=== PATIENT | male | born 2000 | race African-American/Black ===

== ENCOUNTER 2022-04-26 23:49 | Emergency (ER) | payer MEDICAID, OTHER ==
[~2022-04-26] VITALS: Ht 170.2 cm; Wt 81.8 kg
[2022-04-27 03:26] VITALS: BP 126/72
== END 2022-04-27 04:08 | disposition home or self-care (01) ==
LOC: EMS 23:51
DX: R45.1 Restlessness and agitation (principal)
CPT/HCPCS: 99285; Z7502

== ENCOUNTER 2024-05-09 02:29 | Inpatient (IN) | payer MEDICAID, OTHER ==
[~2024-05-09] VITALS: Ht 172.7 cm; Wt 71.7 kg
[2024-05-09 03:26] LABS: BASOPHILS % (AUTO) 0.5 % (0.0-2.0); EOSINOPHILS % (AUTO) 3.3 % (1.0-6.0); HEMOGLOBIN 13.7 g/dL (13.5-17.5); LYMPHOCYTES # (AUTO) 2.7 K/uL (1.0-4.8); LYMPHOCYTES % (AUTO) 35.2 % (22.0-44.0); MEAN CORPUSCULAR HEMOGLOBIN 30.2 pg (26.0-34.0); MEAN CORPUSCULAR HGB CONC 33.5 G/dL (31.0-37.0); MEAN CORPUSCULAR VOLUME 90 fL (80-100); MONOCYTES # (AUTO) 0.7 K/uL (0.1-1.0); MONOCYTES % (AUTO) 8.8 % (2.0-9.0); NEUTROPHILS # (AUTO) 3.9 K/uL (1.8-7.7); NEUTROPHILS % (AUTO) 52.2 % (40.0-70.0); PLATELET COUNT (AUTO) 256 K/uL (150-450); RED BLOOD CELL COUNT(AUTO) 4.55 MIL/uL (4.50-5.90); RED CELL DISTRIBUTION WIDTH 12.8 % (11.5-14.5); WHITE BLOOD COUNT (AUTO) 7.5 K/uL (4.5-11.0)
[2024-05-09 03:36] LABS: ANION GAP 9 mmol/L (8-16); CARBON DIOXIDE 28 mmol/L (22-29); CHLORIDE 99 mmol/L (98-107); CREATININE 1.08 mg/dL (0.60-1.30); GLOMERULAR FILTR. RATE CALC > 60 mL/min (>60); GLUCOSE,RANDOM 99 mg/dL (70-110); POTASSIUM 3.5 mmol/L (3.5-5.1); SODIUM SERUM 136 mmol/L (136-145); UREA NITROGEN, BLOOD 15 mg/dL (7-18)
[2024-05-09 04:04] LABS: ALCOHOL, BLOOD (SERUM) < 3 mg/dL (0-10)
[2024-05-09 04:09] LABS: COVID AG,FIA SOURCE NASAL SWAB; SARS-COV2 (COVID) ANTIGEN,FIA Negative (Negative)
[2024-05-09] MEDS ORDERED: HALOPERIDOL 5 MG TABLET PO PRN (07:00)
[2024-05-09 18:55] VITALS: BP 132/88; PULSE 88; RESP 14; TEMP 98; O2SAT 99
[2024-05-09 23:10] VITALS: BP 119/62; PULSE 70; RESP 16; TEMP 97.6; O2SAT 99
[2024-05-10 08:56] VITALS: BP 122/79; PULSE 69; RESP 17; TEMP 98; O2SAT 96
[2024-05-10] MEDS ORDERED: LITHIUM CARBONATE 300 MG CAPSULE PO SCH (17:00)
[2024-05-10] MEDS: DIVALPROEX SODIUM 500 MG DR TABLET PO SCH (17:00)
[2024-05-10] MEDS ORDERED: OMEPRAZOLE 20 MG CAPSULE PO PRN (17:30)
[2024-05-10] MEDS ORDERED: DOCUSATE SODIUM 100 MG CAPSULE PO PRN (17:30)
[2024-05-10] MEDS ORDERED: BACITRACIN 28 GM OINTMENT TP PRN (17:30)
[2024-05-10] MEDS ORDERED: ALBUTEROL SULFATE HFA 90 MCG/PUFF 8 GM INHALER IH PRN (17:30)
[2024-05-10] MEDS ORDERED: BENZOCAINE/MENTHOL LOZENGE PO PRN (17:30)
[2024-05-10] MEDS ORDERED: MAGNESIUM HYDROXIDE SUSPENSION 30 ML UDCUP PO PRN (17:30)
[2024-05-10] MEDS ORDERED: PETROLATUM,WHITE 28 GM JELLY TP PRN (17:30)
[2024-05-10] MEDS ORDERED: MAG HYDROX/ALUMINUM HYD/SIMETH ES 30 ML SUSPENSION UDCUP PO PRN (17:30)
[2024-05-10 20:15] VITALS: BP 125/80; PULSE 72; RESP 18; TEMP 97.9
[2024-05-10] MEDS: GuanFACINE HCL 1 MG TABLET PO SCH (20:58)
[2024-05-11 08:59] VITALS: BP 119/64; PULSE 60; RESP 16; TEMP 97.4; O2SAT 97
[2024-05-11] MEDS: PALIPERIDONE PALMITATE 234 MG/1.5 ML SYRINGE IM SCH (10:38)
[2024-05-11 20:00] VITALS: BP 138/72; PULSE 84; RESP 16; TEMP 98; O2SAT 95
[2024-05-12 09:29] VITALS: BP 109/67; PULSE 80; RESP 18; TEMP 98.9; O2SAT 96
[2024-05-12 14:36] VITALS: RESP 18; O2SAT 96
[2024-05-12] MEDS: IBUPROFEN 600 MG TABLET PO PRN (14:36)
[2024-05-12 15:36] VITALS: RESP 17; O2SAT 96
[2024-05-12] MEDS: ZOLPIDEM TARTRATE 10 MG TABLET PO PRN (21:21)
[2024-05-12 22:30] VITALS: BP 99/61; PULSE 58; RESP 18; TEMP 98; O2SAT 98
[2024-05-13 08:43] VITALS: BP 117/78; PULSE 69; RESP 16; TEMP 96.9; O2SAT 98
[2024-05-13 11:36] VITALS: RESP 16
[2024-05-13 12:36] VITALS: RESP 16
[2024-05-13 17:01] VITALS: RESP 18
[2024-05-13] MEDS: ACETAMINOPHEN 325 MG TABLET PO PRN (17:01)
[2024-05-13 18:01] VITALS: RESP 18
[2024-05-13 20:23] VITALS: BP 115/72; PULSE 64; RESP 18; TEMP 97.8; O2SAT 96
[2024-05-14 09:30] VITALS: BP 120/80; PULSE 65; RESP 18; TEMP 97.5; O2SAT 97
[2024-05-14 20:49] VITALS: BP 121/82; PULSE 56; RESP 20; TEMP 97.6; O2SAT 98
[2024-05-15 13:52] VITALS: BP 133/68; PULSE 79; RESP 18; TEMP 97.7; O2SAT 96
[2024-05-15 20:17] VITALS: BP 119/70; PULSE 66; RESP 20; TEMP 98.6; O2SAT 98
[2024-05-16 09:11] VITALS: BP 100/62; PULSE 60; RESP 17; TEMP 96.9; O2SAT 99
[2024-05-16 20:00] VITALS: BP 123/66; PULSE 75; RESP 16; TEMP 98.1; O2SAT 95
[2024-05-16] MEDS: LORazepam 2 MG TABLET PO PRN (20:18)
[2024-05-17 09:00] VITALS: BP 100/61; PULSE 60; RESP 18; TEMP 97; O2SAT 91
[2024-05-17 21:13] VITALS: BP 120/68; PULSE 97; RESP 16; TEMP 96.8; O2SAT 97
[2024-05-18 09:30] VITALS: RESP 18
[2024-05-18 20:48] VITALS: BP 121/70; PULSE 80; RESP 18; TEMP 97.5; O2SAT 99
[2024-05-18] MEDS: LOPERAMIDE HCL 2 MG CAPSULE PO PRN (22:10)
[2024-05-19 10:05] VITALS: BP 113/65; PULSE 70; RESP 17; TEMP 97.7; O2SAT 96
[2024-05-19 21:07] VITALS: BP 114/68; PULSE 63; RESP 18; TEMP 98; O2SAT 97
[2024-05-20 08:53] VITALS: BP 110/61; PULSE 52; RESP 18; TEMP 97.1; O2SAT 97
[2024-05-20 20:25] VITALS: BP 120/86; PULSE 106; RESP 18; TEMP 97.2; O2SAT 95
[2024-05-21 08:39] VITALS: BP 106/58; PULSE 62; RESP 17; TEMP 98.2; O2SAT 97
[2024-05-21 20:00] VITALS: BP 129/73; PULSE 72; RESP 16; TEMP 97.3; O2SAT 96
[2024-05-22 08:16] VITALS: BP 118/63; PULSE 58; RESP 19; TEMP 97.8; O2SAT 97
[2024-05-22] MEDS ORDERED: GUAN1TAB22 PO (11:31)
== END 2024-05-22 14:30 | disposition home or self-care (01) | DRG 750 ==
LOC: EMS 02:30 → B3A 14:36 → B2S 21:27
PROVIDERS: ADMIT Psychiatry & Neurology Psychiatry; ATTEND Psychiatry & Neurology Psychiatry
DX: F25.9 Schizoaffective disorder, unspecified (principal); R45.850 Homicidal ideations; F32.9 Major depressive disorder, single episode, unspecified; F84.0 Autistic disorder; Z20.822 Contact with and (suspected) exposure to COVID-19; Z68.24 Body mass index [BMI] 24.0-24.9, adult; F90.9 Attention-deficit hyperactivity disorder, unspecified type; F41.9 Anxiety disorder, unspecified; K59.00 Constipation, unspecified; E66.9 Obesity, unspecified; G47.00 Insomnia, unspecified; Z91.011 Allergy to milk products; Z88.8 Allergy status to other drugs, medicaments and biological substances
CPT/HCPCS: 80048; 80164; 85025; 99285; G0480